=== PATIENT | female | born 1985 | race Caucasian/White ===

== ENCOUNTER → 2022-02-12 | Outpatient (CLI) | payer OTHER, SELFPAY ==
[2022-02-12 12:51] LABS: Hematocrit 39.6 % (37-47); Hemoglobin 13.4 g/dL (12.0-15.0); Mean Corp Hgb Conc 33.8 g/dL (32-36); Mean Corpuscular Hgb 29.7 pg (27.0-32.0); Mean Corpuscular Volume 87.8 fL (81-99); Platelet Count 335 K/mm3 (150-450); RBC Distribution Width CV 12.3 % (11.6-14.6); RBC Distribution Width SD 39.8 fl (35.1-43.9); Red Blood Count 4.51 M/mm3 (4.2-5.4); White Blood Count 10.6 K/mm3 (4.4-11.0)
[2022-02-12 14:07] LABS: Estradiol 40.6 pg/mL; Follicle Stimulating Hormone 9.4 mIU/mL; Luteinizing Hormone 4.9 mIU/mL; Thyroid Stim Hormone (TSH) 1.93 uIU/mL (0.358-3.74)
[2022-02-15 09:36] LABS: Testosterone Free 1.3 pg/mL (0.0-4.2)
== END | disposition home or self-care (01) ==
LOC: WOBLAB 10:58
PROVIDERS: Visit Provider Obstetrics & Gynecology
DX: N93.9 Abnormal uterine and vaginal bleeding, unspecified (principal)
CPT/HCPCS: 36415; 82670; 83001; 83002; 84402; 84439; 84443; 85027

== ENCOUNTER 2024-03-19 06:01 | Day surgery (SDC) | payer OTHER, SELFPAY ==
--- NOTE | 2024-03-11 13:10 | PCM.HP.BLA ---
History and Physical Date of Admission: 03/19/24 Impression Normal appearing anteverted uterus that measures 74 mm x 35 mm x 52 mm. The central endometrium complex measures 13.7 mm in combined thickness. Two endometrial polyps are noted. The left ovary is normal appearing. There is a right adnexal cyst that measures 10.2 cm in greatest dimension. The cyst is simple appearing and unilocular, without solid components or increased vascularity. There is no free fluid visualized in the peritoneal cavity. Saline infusion sonohysterogram demonstrated an intracavitary lesion. The details of these findings are described in the procedure section below. Polyp(s): 1. Size 9 mm x 3 mm x 8 mm. Mean 6.7 mm. Fundal 2. Size 11 mm x 4 mm x 5 mm. Mean 6.7 mm. Fundal Recommendations 1. O-RADS 3 ovarian lesion, follow up ultrasound is recommended in 6 months if no surgical intervention is planned. Low risk lesion. 2. Consider hysteroscopic evaluation and management of intracavitary lesion if clinically indicated. Menstrual History LMP on 01/05/2024 Method Saline Infusion Sonohysterogram, Transvaginal, 3D ultrasound examination, Color Doppler examination Uterus Uterus: Visualized Uterus position: anteverted Uterus length 74 mm Uterus width 52 mm Uterus height 35 mm Uterus Vol 69.8 cm? Endometrial thickness, total 13.7 mm Uterine polyp D1 9 mm Uterine polyp D2 3 mm Uterine polyp D3 8 mm Uterine polyp mean 6.7 mm Uterine polyp findings: Fundal Uterine polyp D1 11 mm Uterine polyp D2 4 mm Uterine polyp D3 5 mm Uterine polyp mean 6.7 mm Uterine polyp findings: Fundal Right Ovary Rt ovary: Visualized Rt ovary D1 85 mm Rt ovary D2 86 mm Rt ovary D3 97 mm Rt ovary Vol 373.3 cm? Rt ovarian cyst D1 102 mm Rt ovarian cyst D2 75 mm Rt ovarian cyst D3 82 mm Rt ovarian cyst mean 86.3 mm Rt ovarian cyst vol 328.454 cm? Rt ovarian cyst findings: Unilocular simple cyst Left Ovary Lt ovary: Visualized Lt ovary D1 29 mm Lt ovary D2 16 mm Lt ovary D3 18 mm Lt ovary Vol 4.3 cm? Pelvic US 03/05 cyst approx 13 cm IMPRESSION: large right ovarian cyst, AUB, endometrial polyp PLAN: The risks/benefits/alternatives and personal involved for the planned hysterosdcopy D&C with polyp resection and laparoscopic right ovarian cystectomy, possible right oophorectomy were reviewed with the patient. Her questions were answered to her satisfaction and she desires to proceed. Consent was signed. I reviewed with her postop instructions and expectations. I have reviewed and updated past medical and surgical history, medications and allergies Assessment & Plan Assessment/Plan (1) Endometrial polyp: (2) Abnormal uterine bleeding (AUB): (3) Right ovarian cyst:
[2024-03-19] VITALS (12 sets, daily range): BP systolic 100–150; BP diastolic 78–98; PULSE 58–82; RESP 14–18; TEMP 36.5–36.9; O2SAT 92–98; BMI 41.6
--- NOTE | 2024-03-19 | EMB_PTH ---
PATIENT: RACHID ADAN LOC: [facility] [place] U#:[id number] AGE/SX: 38/F ROOM: RE03/19/[address]: Dr. Tatyana Junior MD : 1985 BED: DIS: 03/19/2024 SPEC #: [id number] RECD: 03/19/24 13:27 STATUS: YANCI BUTT #: [id number] LORNA: 03/19/24 00:[address]: Tatyana Junior DEPT: SURGICAL PATHOLOGY RECD BY: Marcellus Cramer ENTERED: 03/19/24 13:28 SP TYPE: ENDOM BX/C FAITH DR: AMBER Cartwright Tissues: A - Endometrium, NOS B - OVARIAN CYST Procedures: Surgery Specimen Level IV HEADER OPERATION: Laparoscopic ovarian cystectomy, hysterectomy D&C with polypectomy PRE-OP DIAGNOSIS: Endometrial polyp, abnormal uterine bleeding, right ovarian cyst TISSUE SUBMITTED: A- Endometrial shavings, B- Right ovarian cyst MICROSCOPIC DIAGNOSIS A. Endometrium, biopsy: Proliferative endometrial with minimal disorder. Focal glandular breakdown. B. Right ovarian cyst, excision: Consistent with serous cystadenofibroma. AM/mr 03/22/24 MICROSCOPIC DESCRIPTION Slides are reviewed. GROSS DESCRIPTION A. Received in fixative is one container labeled with the patient's name and designated Endometrial shavings. The specimen consists of multiple irregular fragments of light pink-peters soft tissue measuring in aggregate 2.2 x 2.0 x 0.2cm. The specimen is totally submitted in one cassette. B. Received in fixative is one container labeled with the patient's name and designated Right ovarian cyst. The specimen consists of smooth glistening sac like pink tissue measuring 6.5 x 5.0 x 1.0cm. The cyst wall lining averages 0.1cm in thickness. No papillary projections or excrescences are identified. The specimen is inked, serially sectioned to reveal smooth external and internal surfaces. Trophy Assembler sections are submitted in two cassettes. AM/mr 03/19/2024 TC:1 CPT:78820,54909
[2024-03-19 06:29] LABS: Internal QC Validated? YES +Cl - CLEAR BKGD; Pregnancy, Urine Negative Negative
[2024-03-19] MEDS: Acetaminophen 500 MG Tablet 1000 MG PO (06:49)
[2024-03-19] MEDS: Celecoxib 200 MG Capsule PO (06:50)
[2024-03-19] MEDS: Lactated Ringers 1,000 ML 15 ML IV (06:59)
--- NOTE | 2024-03-19 07:37 | DCINST_ITS ---
Discharge Instructions Diet Discharge Diet: No restrictions (Increase fluid intake for the next 48 hours.) Activity Discharge Activity: May Drive (in 3-5 days as tolerated) and May Shower (No tub baths for 2 weeks) Return to work on:: 03/26/24 May resume sexual activity in: 2 weeks Lifting Restrictions: 20 lbs for 2 weeks Additional Activity Instructions:: Ambulate often the next week after surgery. Nothing in the vagina for 5 days. Alternate acetaminiphen 1000 mg every 6-8 hours with the ibuprofen. Use the oxycodone as needed for breakthrough pain Use a stool softener as needed to keep bowel movements soft, it may be 2-3 days until you have a bowel movement Dressing / Incision Call your doctor if your incision/area has: Continuous Slow Oozing, Sudden Increased Bleeding, Increased Pain/ Swelling, Increased Redness and Foul Smelling Discharge Call your doctor if you observe: Fever of 101 or Higher Cleanse incision/area with: Soap & Water (Your incisions have skin glue, it can get wet. leave it on until it falls off) Follow Up Care Please Follow Up With: Tatyana Junior MD When: Call [phone] for follow-up appointment or send a [employer] message Test Results: Test results from this visit will be discussed in further detail at your follow- up appointment, if applicable. Discharge Plan Admission Primary Reason for Your Visit: Hysterosopy D&C with polyp resection and Right oophorectomy Attending Provider: Tatyana Junior Primary Care Provider: Alma Torrez Instructions Print Language: Polish Discharge Orders/Prescriptions Prescriptions: New ibuprofen 600 mg tablet 600 mg PO Q6H PRN (Reason: Pain) Qty: 60 1RF oxycodone 5 mg tablet 5 mg PO Q8H PRN (Reason: severe pain) 7 Days Qty: 10 0RF Continued nifedipine 90 mg tablet extended release 90 mg PO QHS metformin 500 mg tablet extended release 24 hr 1,000 mg PO DAILY escitalopram oxalate 10 mg tablet 10 mg PO QHS albuterol sulfate 90 mcg/actuation HFA aerosol inhaler 2 puff inhalation Q6H PRN PRN (Reason: dyspnea) Disposition Disposition (needs filled in before D/C Order can be placed): Home, Self Care
[2024-03-19 07:58] LABS: Hemoglobin A1c 6.4 % (3.8-5.6)
[2024-03-19] MEDS: Lidocaine 1% /Epi 1:100 (20ml) 20 ML Vial (08:01)
[2024-03-19] MEDS: Methylene Blue 1% 100 MG/10 ML VIAL (08:01)
[2024-03-19] MEDS: Bupivacaine Mpf 0.5% 30 ML VIAL (08:01)
[2024-03-19 08:31] LABS: Bedside Glucose 115 mg/dL (74-106)
--- NOTE | 2024-03-19 09:06 | OP.PCM_ITS ---
Problems Associated Problem List Diagnoses (1) Right ovarian cyst: (2) Abnormal uterine bleeding (AUB): (3) Endometrial polyp: Report of Operation Date of Procedure: 03/19/24 Pre-Operative Diagnosis: AUB, endometrial polyps, right ovarian cyst Post-Operative Diagnosis: same Surgery/Procedure Performed:: laparoscopic right ovarian cystectomy with lysis of adhesions, hysteroscopy D&C with polyp resection and chromopertubation Description of Surgical Findings:: normal cervix and vagina. Lush endometrium with 2 fundal polyps noted, normal left tube and ovary, large right ovarian cyst, simple appearing, adhered to small bowel and pelvic sidewall, normal right ovary, somewhat clubbed right tube, good spill from left tube, filling of right tube without definitive spill Surgeon: Tatyana Junior sales and in home delivery specialist: Concepcion Neff Type of Anesthesia: General Anesthesiologist: Dorinda Childs Special Medications: none Specimen's removed: endometrial polyps and curettings, right ovarian cyst Drains: none Estimated Blood Loss (mL): 10 Fluids Replaced: 900 Description of Procedure: The patient was taken to the OR where she was prepped and draped in dorsal lithotomy position. The weighted speculum was placed in the vagina and the anterior lip of the cervix was grasped with a single-tooth tenaculum. A paracervical block was administered with 1% lidocaine with 1-100,000 epinephrine solution. The cervix was dilated serially with Hegar dilators. The Symphion hysteroscope was placed into the uterine cavity and the above findings were noted. Bilateral tubal ostia were identified. The Symphion resection device was readied and inserted. The cavity pressure was set to 90 after confirming the mean arterial pressure was 102. The polyps were removed in their entirety and then a visual D&C was done of the endometrial cavity. Calculated fluid deficit from the hysteroscopy was 650 cc of normal saline. The Josseline uterine manipulator was placed and the remainder of the instruments were removed from the vagina. Attention was turned to the abdomen. All port sites were infiltrated with 0.5% Marcaine before skin incisions were made. A 5 mm intraumbilical incision was made. The anterior abdominal wall was tented up with 2 towel clamps while a 5 mm blade less trocar and sleeve was inserted using the Visiport. Intraperitoneal placement was confirmed with the laparoscope. The pneumoperitoneum was created and the underlying abdominal contents were intact. The patient was placed in Trendelenburg. 5mm right and left lower quadrant ports were placed under direct visualization lateral to the inferior epigastric vessels. The bowel was swept away and the above findings were noted. There were some adhesions of the ovary to the small bowel and the pelvic sidewall. Some of these were filmy. Sharp scissors were used to remove some of them. The suction day care provider was then used to drain 400 cc of straw-colored fluid from the cyst. The cyst wall was then deflated. The cyst was then opened with the LigaSure device. The cyst wall was then peeled out. Care was taken not to damage or remove the tube. The remaining normal portion of the ovary was left intact. There is no active bleeding from the cyst best. The cyst was removed through the umbilicus with a 10 mm Endo Catch bag. The pelvis was irrigated with normal saline and the fluid removed. Methylene blue dye and normal saline was then injected through the uterine manipulator and free spill was noted on the left tube right tube appeared to fill and may be some small amount of fluid at the distal end but no active flow from the tube. The the umbilical port fascia was then closed with a 0 Vicryl suture in a [id number] suture.. The lateral ports were removed under direct visualization and no active bleeding was noted. The pneumoperitoneum was released. The skin incisions were closed with Monocryl suture in a subcuticular fashion and skin glue by Dr. Pierre. The vaginal instruments were removed and the vaginal sweep was completed by me after the Neumann catheter was removed. The procedure was performed by me with assistance other than as dictated above. All sponge and needle counts were correct and the patient was taken to the recovery room in stable condition. Dr. Pierre provided tissue manipulation, assistance with camera guidance and visualization and uterine manipulation during the case. No qualified residents were available for the procedure. Grafts/Implants Used: none Procedure Start Time: 08:01 Procedure Stop Time: 09:05 Complications none Admit VTE Documentation VTE Present on Admission: No VTE Mechan Device Prophylaxis: SCD's VTE Pharm Prophylaxis ordered?: No Reason prophylaxis not ordered:: Procedure Not Indicated
[2024-03-19 09:23] LABS: Anion Gap 8 (5-15); BUN 8 mg/dL (7-18); BUN/Creat Ratio 13.2 RATIO (10-20); Calcium,Total 8.8 mg/dL (8.5-10.1); Chloride 106 mmol/L (98-107); Creatinine, Serum 0.61 mg/dL (0.55-1.02); EST Glomerular Filtration Rate 117 mL/min (>60); Est Glom Filt Rate - Afr Amer 141 mL/min (>60); Estimated Creatinine Clearance 135.58 ml/min; Glucose 132 mg/dL (74-106); Potassium 3.9 mmol/L (3.5-5.1); Sodium Level 137 mmol/L (136-145)
[2024-03-19] MEDS: Lactated Ringers 1,000 ML 75 ML IV (10:30)
== END 2024-03-19 12:39 | disposition home or self-care (01) ==
LOC: SDC 06:10 → AC 06:11
PROVIDERS: Anesthesiology; PCP Physician Assistant; Referring Provider Obstetrics & Gynecology; Visit Provider Obstetrics & Gynecology
PROC: (CPT 58662; principal; 2024-03-19 07:15)
DX: N83.201 Unspecified ovarian cyst, right side (principal); N93.9 Abnormal uterine and vaginal bleeding, unspecified; N84.0 Polyp of corpus uteri; Z79.84 Long term (current) use of oral hypoglycemic drugs; Z11.9 Encounter for screening for infectious and parasitic diseases, unspecified; I10 Essential (primary) hypertension; Z79.899 Other long term (current) drug therapy
CPT/HCPCS: 58662; 58558; 58350; 00840; 80048; 81025; 82962; 83036; 88305; J7120; J2405